=== PATIENT | female | born 1930 | race Asian ===

== ENCOUNTER → 2018-05-20 | Outpatient (CLI) | payer MEDICARE, OTHER ==
[~2018-05-20] MED LIST: ALEN70TA69 PO; ASPI-825 PO; ATEN100T PO; CALC1TAB90 PO; HYDR12.54 PO; LORA10TA7 PO; MONT10TA21 PO; MULT1TAB PO; SIMV20TA6 PO; VALS80TA2 PO
== END | disposition home or self-care (01) ==
LOC: RADPV 10:07
PROVIDERS: ATTEND Internal Medicine Nephrology
DX: N27.1 Small kidney, bilateral (principal); N18.4 Chronic kidney disease, stage 4 (severe)
CPT/HCPCS: 76770

== ENCOUNTER → 2019-05-05 | Outpatient (CLI) | payer MEDICARE, OTHER ==
[~2019-05-05] MED LIST changes: +ALEN70TA19 PO; -ALEN70TA69 PO
== END | disposition home or self-care (01) ==
LOC: RADPV 09:24
PROVIDERS: ATTEND Internal Medicine Nephrology
DX: R22.40 Localized swelling, mass and lump, unspecified lower limb (principal); R14.0 Abdominal distension (gaseous)
CPT/HCPCS: 76700